=== PATIENT | female | born 1975 | race Caucasian/White ===

== ENCOUNTER 2016-11-17 22:20 | Day surgery (SDCO) | payer OTHER ==
[~2016-11-17 22:20] MED LIST: ASPIRIN CHEWABL81 MG PO; DEXILANT60 MG PO; FIORICET1 EACH PO; FLEXERIL10 MG PO; HUMALOG100 UNIT/1 SQ; INVOKANA300 MG PO; LANTUS **100 UNITS/ SQ; LIPITOR40 MG PO; METFORMIN HCL500 M1 PO; NEURONTIN300 MG PO; NIACIN ER500 MG PO; NITROQUIK SL0.4 MG SL; PERCOCET 5/3251 TAB PO; PROTONIX 40MG T40 MG PO; TOPAMAX50 MG PO; VITAMIN B-121000 MC1 PO; VITAMIN D1000 UNI1 PO; VOLTAREN **OUT75 MG PO; XARELTO10 MG PO; ZANTAC150 MG PO
[2016-11-18 00:55] LABS: BASOPHIL 0.8 % (0-2); BILIRUBIN NEGATIVE (NEGATIVE); BLOOD TRACE-LYSED Ery/uL (NEGATIVE); CLARITY CLEAR (CLEAR); COLOR STRAW (YELLOW); EOSINOPHIL 2.5 % (0-5); GLUCOSE (U) 3+ mg/dL (NORMAL); HCT 43.9 % (37.0-47.0); HGB 15.5 g/dl (12.5-16.0); KETONE (U) TRACE mg/dL (NEGATIVE); LEUKOCYTES NEGATIVE Leu/uL (NEGATIVE); LYMPHOCYTE 38.2 % (15-48); MCH 28.4 pg (25.0-31.0); MCHC 35.3 g/dL (32.0-36.0); MCV 80.4 fL (78.0-100.0); MONOCYTE 7.2 % (0-12); MPV 10.6 fL (6.0-9.5); NEUTROPHIL 51.3 % (41-80); NITRITE NEGATIVE (NEGATIVE); PLT 269 K/uL (150-400); PROTEIN NEGATIVE (NEGATIVE); RBC 5.46 M/uL (4.20-5.40); RDW 13.8 % (11.5-14.0); SPECIFIC GRAVITY 1.015 (1.001-1.030); UROBILINOGEN 0.2 mg/dL (0.2-1.0); WBC 10.4 K/uL (4.0-10.5)
[2016-11-18 01:18] LABS: INR 0.95 (0.9-1.2); PROTHROMBIN TIME 12.3 SECONDS (11.7-14.0)
[2016-11-18 01:21] LABS: ALBUMIN 4.1 g/dL (3.5-5.0); BILIRUBIN - TOTAL 0.2 mg/dL (0.1-1.0); CREATININE 0.8 mg/dL (0.5-1.0); GLOBULIN (CALCULATION) 2.6 g/dL (2.2-4.2); POTASSIUM 3.8 mmol/L (3.5-5.1); TOTAL PROTEIN 6.7 g/dL (6.4-8.3)
[2016-11-18 01:23] LABS: TROPONIN T < 0.010 ng/mL
[2016-11-18 01:24] LABS: CKMB < 1.00 ng/mL (0.97-4.94)
[2016-11-18 01:26] LABS: BACTERIA TRACE; URINARY WBC 20-50
[2016-11-18 01:27] LABS: YEAST PRESENT
[2016-11-18 06:45] LABS: BASOPHIL 0.6 % (0-2); EOSINOPHIL 2.5 % (0-5); HGB 14.8 g/dl (12.5-16.0); LYMPHOCYTE 36.6 % (15-48); MCH 28.5 pg (25.0-31.0); MCHC 35.2 g/dL (32.0-36.0); MCV 80.8 fL (78.0-100.0); MPV 10.3 fL (6.0-9.5); NEUTROPHIL 54.3 % (41-80); PLT 264 K/uL (150-400); RDW 13.7 % (11.5-14.0)
[2016-11-18 07:02] LABS: CREATININE 0.5 mg/dL (0.5-1.0); POTASSIUM 4.1 mmol/L (3.5-5.1)
== END 2016-11-18 14:30 | disposition other institution (70) ==
LOC: FER 22:20 → FTCU 11-18 02:00
PROVIDERS: Emergency Medicine; ADMIT Internal Medicine
DX: I24.9 Acute ischemic heart disease, unspecified (principal); I25.10 Atherosclerotic heart disease of native coronary artery without angina pectoris; E11.9 Type 2 diabetes mellitus without complications; E78.5 Hyperlipidemia, unspecified; J45.909 Unspecified asthma, uncomplicated; F17.210 Nicotine dependence, cigarettes, uncomplicated; N39.0 Urinary tract infection, site not specified; B37.9 Candidiasis, unspecified; Z96.651 Presence of right artificial knee joint; Z82.49 Family history of ischemic heart disease and other diseases of the circulatory system; Z88.5 Allergy status to narcotic agent; Z88.8 Allergy status to other drugs, medicaments and biological substances; Z90.49 Acquired absence of other specified parts of digestive tract; Z90.710 Acquired absence of both cervix and uterus; Z98.41 Cataract extraction status, right eye; Z98.42 Cataract extraction status, left eye; Z79.82 Long term (current) use of aspirin; Z79.1 Long term (current) use of non-steroidal anti-inflammatories (NSAID); Z79.4 Long term (current) use of insulin; Z79.84 Long term (current) use of oral hypoglycemic drugs; Z79.899 Other long term (current) drug therapy; Z98.890 Other specified postprocedural states
CPT/HCPCS: 36415; 71010; 80048; 80053; 80061; 81001; 82550; 82553; 82962; 83036; 83690; 84484; 85025; 85610; 85730; 87076; 87077; 87088; 87186; 93005; G0378; J2270

== ENCOUNTER 2016-11-19 22:10 | Emergency (ER) | payer OTHER ==
[2016-11-19 23:50] LABS: BILIRUBIN NEGATIVE (NEGATIVE); BLOOD NEGATIVE Ery/uL (NEGATIVE); CLARITY CLEAR (CLEAR); COLOR YELLOW (YELLOW); GLUCOSE (U) 3+ mg/dL (NORMAL); KETONE (U) NEGATIVE (NEGATIVE); LEUKOCYTES NEGATIVE Leu/uL (NEGATIVE); NITRITE NEGATIVE (NEGATIVE); PROTEIN NEGATIVE (NEGATIVE); SPECIFIC GRAVITY <=1.005 (1.001-1.030); UROBILINOGEN 0.2 mg/dL (0.2-1.0)
== END 2016-11-20 01:57 | disposition home or self-care (01) ==
LOC: FER 22:10
PROVIDERS: Emergency Medicine
DX: R10.84 Generalized abdominal pain (principal); I50.9 Heart failure, unspecified; E11.9 Type 2 diabetes mellitus without complications; E78.5 Hyperlipidemia, unspecified; Z87.19 Personal history of other diseases of the digestive system; Z88.5 Allergy status to narcotic agent; Z88.8 Allergy status to other drugs, medicaments and biological substances; Z95.5 Presence of coronary angioplasty implant and graft; Z90.49 Acquired absence of other specified parts of digestive tract; Z98.890 Other specified postprocedural states
CPT/HCPCS: 81003; J2270